=== PATIENT | female | born 1985 | race Caucasian/White ===

== ENCOUNTER 2017-03-09 01:29 | Emergency (ER) | payer BC, OTHER ==
[~2017-03-09] VITALS: Ht 160 cm; Wt 86.5 kg
[2017-03-09 01:59] VITALS: Ht 160 cm; Wt 86.5 kg
[2017-03-09 05:31] LABS: URINE BLOOD (Dip) POC Trace-lysed (NEGATIVE)
[2017-03-09] MEDS ORDERED: IBUPROFEN 200 MG TAB PO ONE (06:00)
--- NOTE | 2017-03-09 06:13 | ERA ---
ER Documentation Chief Complaint Date/Time DATE: 03/09/17 TIME: 06:07 Chief Complaint Foot injury tripped and fall accident HPI This is a 32-year-old female who presents complaining of left ankle pain. Patient was at a bar while going to pets a dog when she twisted her ankle because the step was to long. Patient denies trauma to any other areas. Patient describes the pain as 7 out of 10 and worse with ambulation/movement. Patient denies any rapidly progressive neuro findings, numbness, tingling, hearing/feeling a popping sound/sensation. Patient denies any medical conditions including diabetes. ROS All systems reviewed and are negative except as per history of present illness. Medications Home Meds Active Scripts Ibuprofen* (Motrin*) 400 Mg Tab, 400 MG PO Q6H Y for PAIN AND OR ELEVATED TEMP, #30 TAB Prov:GERARDO CHURCH PA-C 03/09/17 Allergies Allergies: Coded Allergies: No Known Allergy (Unverified , 03/09/17) PMhx/Soc History of Surgery: Yes (TONSILECTOMY AND RIGHT KNEE SX.) Anesthesia Reaction: No Hx Neurological Disorder: No Hx Respiratory Disorders: No Hx Cardiac Disorders: No Hx Psychiatric Problems: No Hx Miscellaneous Medical Probl: Yes (ADHD) Hx Alcohol Use: Yes (SOCIALLY) Hx Substance Use: No Hx Tobacco Use: No Smoking Status: Never smoker Physical Exam Vitals Vital Signs Date Time Temp Pulse Resp B/P Pulse Ox O2 Delivery O2 Flow Rate FiO2 03/09/17 01:59 99.5 119 20 123/66 98 Physical Exam Const: Morbidly obese 32-year-old female Head: Atraumatic Eyes: Normal Conjunctiva ENT: Normal External Ears, Nose and Mouth. Neck: Full range of motion..~ No meningismus. Resp: Clear to auscultation bilaterally Cardio: Regular rate and rhythm, no murmurs. Dorsalis pedis and posterior tibial pulses 2+ bilaterally. Abd: Soft, non tender, non distended. Normal bowel sounds Skin: Mild hematoma on the medial aspect of the left foot. No petechiae or rashes Back: No midline or flank tenderness Ext: Tenderness of the lateral/posterior/medial left ankle. Maximum tenderness over the mid dorsal foot. Range of motion decreased secondary to pain. Achilles tendon intact. Neur: Awake and alert neurovascularly intact bilaterally. Psych: Normal Mood and Affect Results 24 hrs Laboratory Tests Test 03/09/17 05:33 Bedside Urine pH (LAB) 5.5 Bedside Urine Protein (LAB) Negative Bedside Urine Glucose (UA) Negative Bedside Urine Ketones (LAB) Negative Bedside Urine Blood Trace-lysed Bedside Urine Nitrite (LAB) Negative Bedside Urine Leukocyte Esterase (L Negative Current Medications Medications (Trade) Dose Ordered Sig/Shira Route PRN Reason Start Time Stop Time Status Last Admin Dose Admin Ibuprofen (Motrin) 400 mg ONCE ONCE PO 03/09/17 06:00 03/09/17 06:01 DC 03/09/17 06:37 Procedures/MDM XR of the affected site was unremarkable. At this time I am unable to rule out tendon or ligamentous injuries. Thus, the pt was given recommendations to follow up with ortho and advised to follow up with their PCP in the next 1-2 days to be formally referred to, and further evaluated for soft tissue injuries , by an food service specialist. Pt will be discharged with 400 mg ibuprofen to control the pain. Patient will be given crutches with an Saul wrap on discharge to help with ADLs. This time I have little suspicion for fracture or ligamentous injury as the physical exam was unremarkable for ligamentous/tendon instability, or compartment syndrome as there is no crush injury or pain out of proportion to physical examination. Point tenderness is appropriate and I do not believe there is an old Fracture at this time although I have recommended that the patient be followed up by food service specialist and stay off the injured site until follow-up. Have discussed rice therapy with the patient. Departure Diagnosis: Primary Impression: Foot pain Qualified Code: M79.672 - Left foot pain Additional Impression: Injury of foot Qualified Code: S99.922A - Injury of foot, left, initial encounter Condition: Stable Additional Instructions: Follow up with your PCP within the next 1-3 days for a more thorough evaluation and a possible referral to a specialist. Return the the emergency department immediately if symptoms worsen or change. If you have any questions regarding medications, ask your pharmacist or us before you leave. If any adverse reactions occur while taking your medications, discontinue the treatment and return to the emergency department immediately. Take your medications as directed, and complete the entire course of treatment. GERARDO CHURCH PA-C March 09, 2017 06:13
--- NOTE | 2017-03-09 06:46 | RADRPT ---
PROCEDURE: Left foot. CLINICAL INDICATION: Pain. TECHNIQUE: Three views including AP, lateral and oblique views of the left foot were obtained. T he images were reviewed on a PACS workstation. COMPARISON: None. FINDINGS: There is no fracture, dislocation or bone destruction. The joint spaces are within normal limits. Bone mineralization is within normal limits. There is no radiopaque foreign body or abnormal calcif ication. IMPRESSION: No evidence of fracture. .Ariel Bruner MD, Date Time Electronically viewed and signed by .Ariel Bruner MD, on 03/09/2017 06:46 .T/
--- NOTE | 2017-03-09 06:48 | RADRPT ---
PROCEDURE: Left ankle. CLINICAL INDICATION: Pain. TECHNIQUE: Three views including AP, lateral and oblique views of the left ankle were performed. COMPARISON: None. FINDINGS: There is no fracture, dislocation or bone destruction. The ankle mortise is within normal limits. Bone mineralization is within normal limits. There is no radiopaque foreign body or abnormal calcif ication. There is a sclerotic lesion within the lateral cortex of the distal tibia measuring 2.2 x 0 .8 cm compatible with a healed nonossifying fibroma. IMPRESSION: No evidence of fracture. 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 .Ariel Bruner MD, MD Date Time Electronically viewed and signed by .Ariel Bruner MD, MD on 03/09/2017 06:47 .T/
[2017-03-09] MEDS ORDERED: IBUP400T22 PO (07:13)
== END 2017-03-09 07:32 | disposition home or self-care (01) ==
LOC: FTE 01:29
DX: S99.922A Unspecified injury of left foot, initial encounter (principal); W01.0XXA Fall on same level from slipping, tripping and stumbling without subsequent striking against object, initial encounter; Y92.9 Unspecified place or not applicable
CPT/HCPCS: 73610; 81003